=== PATIENT | female | born 1990 | race Hispanic/Latino ===

== ENCOUNTER 2024-08-31 12:27 | Outpatient (CLI) | payer MEDICAID | END 2024-08-31 12:28 | disposition home or self-care (01) | LOC: CSHULT 12:27 | DX: Z33.1 Pregnant state, incidental (principal); Z3A.22 22 weeks gestation of pregnancy | CPT/HCPCS: 76805 ==

== ENCOUNTER 2024-12-22 10:36 | Inpatient (IN) | payer OTHER ==
[2024-12-21 13:39] LABS: Hemoglobin 11.7 g/dL (12.0-15.5); Platelet Count 318 10x3/uL (150-450)
[2024-12-21 18:18] LABS: Syphilis Antibody Nonreactive (Nonreactive); Syphilis Antibody Index 0.06 S/CO (<1.00 Non-Reactive)
[2024-12-21 18:21] LABS: HBsAg Index 0.16 S/CO (0-0.99); HIV (1/2) Antibody/Antigen Non-Reactive (NonReactive); HIV 1/2 INDEX 0.08 S/CO (<1.00); Hep B Surf Ag Non-Reactive S/CO (NonReactive)
[2024-12-22] MEDS ORDERED: Oxytocin 10 UNITS/ML VIAL FS ONE (10:37)
[2024-12-22 11:08] VITALS: BMI 42.7
[2024-12-22] MEDS ORDERED: Methylergonovine 0.2 MG/ML VIAL IM PRN (11:08)
[2024-12-22] MEDS ORDERED: CEFAZOLIN 2 GM in Sodium Chloride 0.9% 100 ML IVPB SCH (11:08)
[2024-12-22] MEDS ORDERED: Misoprostol 200 MCG TAB PR PRN (11:08)
[2024-12-22] MEDS ORDERED: Promethazine HCl 25 MG/ML VIAL IM PRN ×3 (11:08→17:07)
[2024-12-22] MEDS ORDERED: Oxytocin 30 units/NS 500 ML 500 ML IV SCH (11:08)
[2024-12-22] MEDS ORDERED: Diphenoxylate HCl/Atropine Tablet PO PRN (11:08)
[2024-12-22] MEDS ORDERED: Bicitra 30 ML UDCUP PO PRN (11:08)
[2024-12-22] MEDS ORDERED: Lactated Ringer's 1,000 ML IV SCH (11:08)
[2024-12-22] MEDS ORDERED: Tranexamic Acid 1,000 MG/10 ML VIAL IVP PRN (11:08)
[2024-12-22] MEDS ORDERED: Carboprost 250 MCG/ML AMP IM PRN (11:08)
[2024-12-22] MEDS ORDERED: hydrALAZINE 20 MG/ML VIAL SLOW IVP PRN ×2 (11:08→17:07)
[2024-12-22] MEDS: Famotidine/PF 20 mg/2ml Vial SLOW IVP PRN (11:51)
[2024-12-22] MEDS: Ondansetron PF 4 MG/2 ML Vial IVP PRN (11:51)
[2024-12-22] MEDS ORDERED: Oxytocin 10 UNITS/ML VIAL ONE (13:19)
[2024-12-22] MEDS ORDERED: Ondansetron PF 4 MG/2 ML Vial IVP PRN ×3 (13:38→17:07)
[2024-12-22] MEDS ORDERED: Naloxone HCl 0.4 mg/ml Vial IV PRN (13:38)
[2024-12-22] MEDS ORDERED: Moisturizing Cream (Eucerin) 113 GM JAR TOP PRN (13:38)
[2024-12-22] MEDS ORDERED: fentaNYL 50 mcg/mL 1 mL Vial SLOW IVP PRN (13:38)
[2024-12-22] MEDS ORDERED: diphenhydrAMINE 50 MG/ML VIAL IVP PRN (13:38)
[2024-12-22] MEDS ORDERED: Naloxone HCl 0.4 mg/ml Vial IVP PRN ×2 (13:38)
[2024-12-22] MEDS ORDERED: Morphine 4 MG/ML VIAL SLOW IVP PRN (13:38)
[2024-12-22] MEDS ORDERED: Meperidine HCl/PF 25 MG (1 mL) VIAL SLOW IVP PRN (13:38)
[2024-12-22] MEDS ORDERED: Ketorolac Tromethamine 30 MG (1 mL) VIAL IVP SCH (13:45)
[2024-12-22] MEDS ORDERED: Communication Order-Pharmacy FS SCH (13:45)
[2024-12-22] MEDS ORDERED: Lanolin Ointment 7 GM TUBE TOP PRN (17:07)
[2024-12-22] MEDS ORDERED: Bisacodyl 10 MG SUPP PR PRN (17:07)
[2024-12-22] MEDS ORDERED: Simethicone Chewable 80 MG TAB PO PRN (17:07)
[2024-12-22] MEDS ORDERED: diphenhydrAMINE 25 MG CAP PO PRN (17:07)
[2024-12-22] MEDS: Erythromycin Base 0.5% Oint 1 GM TUBE ONE (19:17)
[2024-12-22] MEDS: Dexamethasone 10 MG/ML VIAL ONE (19:17)
[2024-12-22] MEDS: Ondansetron PF 4 MG/2 ML Vial ONE (19:17)
[2024-12-22] MEDS: Promethazine HCl 25 MG/ML VIAL ONE ×2 (19:17→19:18)
[2024-12-22] MEDS: Morphine PF 10 MG/10 ML VIAL ONE (19:17)
[2024-12-22] MEDS: CEFAZOLIN 2 GM VIAL ONE (19:17)
[2024-12-22] MEDS: Dexmedetomidine 200 MCG/2 ML VIAL ONE (19:17)
[2024-12-22] MEDS: Hepatitis B Vaccine 10 MCG/0.5 ML SYR ONE (19:17)
[2024-12-22] MEDS: Phytonadione Neonatal 1 MG/0.5 ML AMP ONE (19:18)
[2024-12-22] MEDS: Phenylephrine 10 MG/ML VIAL ONE ×2 (19:18→19:19)
[2024-12-22] MEDS: Oxytocin 10 UNITS/ML VIAL ONE (19:18)
[2024-12-22] MEDS: ePHEDrine Sulfate 50 MG/10 ML VIAL ONE (19:18)
[2024-12-22] MEDS: Ketorolac Tromethamine 30 MG (1 mL) VIAL IVP SCH ×2 (19:21→19:47)
[2024-12-22] MEDS: Docusate 100 MG CAP PO SCH (20:45)
[2024-12-22] MEDS: Ferrous Sulfate 325 MG TAB PO SCH (22:45)
[2024-12-23] MEDS ORDERED: Meperidine HCl/PF 25 MG (1 mL) VIAL IM PRN (01:45)
[2024-12-23] MEDS: HYDROcodone/Acetaminophen 5/325 mg Tablet PO PRN ×2 (04:12→11:35)
[2024-12-23 05:36] LABS: Hematocrit 30.5 % (34.9-44.5); Hemoglobin 10.1 g/dL (12.0-15.5); Mean Corpuscular HGB CONC 33.1 g/dL (32.0-36.0); Mean Corpuscular Hemoglobin 30.1 pg (27.0-33.0); Mean Corpuscular Volume 90.8 fL (81.6-98.3); Mean Platelet Volume 10.3 fL (7.4-10.4); Platelet Count 276 10x3/uL (150-450); RBC Distribution Width 13.3 % (11.5-14.5); Red Blood Cell (RBC) Count 3.36 10x6/uL (3.90-5.03); White Blood Cell (WBC) Count 13.57 10x3/uL (3.5-10.5)
[2024-12-23] MEDS: Prenatal Vitamin 1 TAB PO SCH (07:30)
[2024-12-23] MEDS: Boostrix 0.5 ML (Tdap) VIAL (>/=7 yrs of age) IM ONE (09:35)
[2024-12-23] MEDS: Ibuprofen 800 MG TAB PO SCH (14:12)
[2024-12-24 12:37] VITALS: BP 136/83; TEMP 98.8
== END 2024-12-24 19:50 | disposition home or self-care (01) | DRG 788 ==
LOC: OBSVTOIN 10:36 → CSHLD 10:36 → CSHPED 15:38
PROVIDERS: ADMIT Family Medicine; ATTEND Family Medicine
PROC: 10D00Z1 Extraction of Products of Conception, Low, Open Approach (ICD-10-PCS; principal; 2024-12-22)
DX: O34.211 Maternal care for low transverse scar from previous cesarean delivery (principal); O99.214 Obesity complicating childbirth; Z3A.39 39 weeks gestation of pregnancy; Z37.0 Single live birth; O24.420 Gestational diabetes mellitus in childbirth, diet controlled; E66.01 Morbid (severe) obesity due to excess calories
CPT/HCPCS: 36415; 51702; 85014; 85018; 85027; 85049; 86780; 86850; 86900; 86901; 87340; 87389; C1889; J1100; J1885; J2274; J2371; J2405; J2550; J2590; J3490